=== PATIENT | male | born 1950 | race Caucasian/White ===

== ENCOUNTER 2017-11-14 20:01 | Emergency (ER) | payer BC, MEDICARE ==
[2017-11-14] MEDS ORDERED: Lidocaine 1% 50 ML MDV INJECT ONE (20:38)
--- NOTE | 2017-11-14 21:07 | EDM.PDOC ---
ED HPI GENERAL MEDICAL PROBLEM - General Chief Complaint: Laceration Stated Complaint: RIGHT POINTER FINGER SLICED WITH A KNIFE Time Seen by Provider: 11/14/17 20:37 Source of Information: Reports: Patient History Limitations: Reports: No Limitations - History of Present Illness INITIAL COMMENTS - FREE TEXT/NARRATIVE: 67-year-old male presents for evaluation and treatment of a laceration to the right hand distal second finger. Patient reports he was cutting a banana when he actually cut himself with a knife. Reports tetanus is up-to-date. He reports some numbness associated with the area but no decreased range of motion. Patient is left-handed. Right 2-Index finger Pain Score (Numeric/FACES): 2 - Related Data Allergies Allergy/AdvReac Type Severity Reaction Status Date / Time No Known Allergies Allergy Verified 11/14/17 20:22 Home Meds: Home Meds Lisinopril [Prinivil] 10 mg PO DAILY 11/14/17 [History] Tadalafil [Cialis] 5 mg PO DAILY 11/14/17 [History] Past Medical History Cardiovascular History: Reports: Hypertension Social & Family History - Family History Family Medical History: Noncontributory - Tobacco Use Smoking Status *Q: Never Smoker ED ROS GENERAL - Review of Systems Review Of Systems: See Below Musculoskeletal: Reports: Other (no decreased ROM to the right hand 2nd finer) Skin: Reports: Wound (right hand 2nd finger) ED EXAM, SKIN/RASH Exam: See Below Exam Limited By: No Limitations General Appearance: Alert, WD/WN, No Apparent Distress Respiratory/Chest: No Respiratory Distress Cardiovascular: Normal Peripheral Pulses Peripheral Pulses: 2+: Radial (R) Extremities: Normal Inspection, Other (3cm laceration to the right hand distal 2nd finger; patient has no ROM to the DIP joint from previous injury, full flexion, extension, adduction and abduction to the right hand 2nd finger PIP and MCP joints) Neurological: Alert, Oriented, Normal Cognition Psychiatric: Normal Affect, Normal Mood Skin: Warm, Dry, Normal Color Location, Skin: Upper Extremity, Right Characteristics: Linear (3cm subcutaneous laceration to the right hand distal 2nd finger) ED SKIN PROCEDURES - Laceration/Wound Repair Right Distal Digit - 2nd (Index) Lac/Wound length In cm: 3 Appearance: Subcutaneous, Linear Distal NVT: No Tendon Injury, Other (decreased sensation to light touch to the right hand distal 2nd finger tip) Anesthetic Type: Local Local Anesthesia - Lidocaine (Xylocaine): 1% Plain Local Anesthetic Volume: 4cc Skin Prep: Chlorhexidine (Hibiciens), Saline, Sterile Drape Exploration/Debridement/Repair: Wound Explored Closed with: Sutures Suture Size: other (5-0) # of Sutures: 9 Suture Type: Nylon, Interrupted, Simple Sterile Dressing Applied: Nurse Tetanus Status Addressed: Yes Complications: No Course - Vital Signs Last Recorded V/S: Last Vital Signs Temp 98.5 F 11/14/17 20:19 Pulse 71 11/14/17 20:19 Resp 18 11/14/17 20:19 BP 177/98 H 11/14/17 20:19 Pulse Ox 99 11/14/17 20:19 - Orders/Labs/Meds Orders: Active Orders 24 hr Category Date Time Status Fingers Second Digit Rt F6 [CR] Stat Exams 11/14/17 20:38 Ordered Meds: Medications Discontinued Medications Generic Name Dose Route Start Last Admin Trade Name Christopher PRN Reason Stop Dose Admin Lidocaine HCl 50 ml 11/14/17 20:38 11/14/17 20:47 Xylocaine 1% INJECT 11/14/17 20:39 50 ml ONETIME ONE Administration - Re-Assessments/Exams Free Text/Narrative Re-Assessment/Exam: 11/14/17 22:05 9 sutures placed to the right hand 2nd finger distal phalnex. Tetanus is up to date. Patient tolerated well. No complications. Discharge instructions as documented. Departure - Departure Time of Disposition: 22:07 Disposition: Home, Self-Care 01 Condition: Good Clinical Impression: Laceration - Discharge Information *PRESCRIPTION DRUG MONITORING PROGRAM REVIEWED*: No *COPY OF PRESCRIPTION DRUG MONITORING REPORT IN PATIENT LEO: No Instructions: Laceration Care, Adult, [id number] Referrals: PCP,Not In Area [Primary Care Provider] - Forms: ED Department Discharge Additional Instructions: Wash the wound gentle soap and water twice a day. Apply antibacterial ointment such as Neosporin or bacitracin to the wound twice a day. leave the wound open to air if able otherwise in situations where may become dirty is contaminated keep covered. Monitor for signs of infection such as increased swelling, pus or redness. Presents the clinic or the ER should these develope. Take [id number] Tylenol or Motrin as needed for pain. Have the sutures removed in 10 days. The [facility] located on the side of the hospital can remove these they are open 8 AM to 5 PM Monday through Monday will remove the sutures for free. Call [phone] schedule the provider there. May also return to the ED. Please return to the ER if your symptoms change or worsen. - My Orders Last 24 Hours: My Active Orders 11/14/17 20:38 Fingers Second Digit Rt F6 [CR] Stat - Assessment/Plan Last 24 Hours: My Active Orders 11/14/17 20:38 Fingers Second Digit Rt F6 [CR] Stat
--- NOTE | 2017-11-15 07:01 | CR ---
Right second finger: Four views of the right second finger were obtained. Comparison: No previous finger exam. No fracture or other bony abnormality is seen. No soft tissue foreign bodies are seen. Impression: 1. No acute bony abnormality is appreciated. Diagnostic code #1
== END 2017-11-14 22:30 | disposition home or self-care (01) ==
LOC: JD.ED 20:01
DX: S61.210A Laceration without foreign body of right index finger without damage to nail, initial encounter (principal); I10 Essential (primary) hypertension; W26.0XXA Contact with knife, initial encounter; Z79.899 Other long term (current) drug therapy
CPT/HCPCS: 12002; 73140-26-F6; 73140-F6; 99283-25